=== PATIENT | male | born 1980 | race Caucasian/White ===

== ENCOUNTER 2021-01-12 16:00 | Emergency (ER) | payer OTHER, SELFPAY ==
--- NOTE | 2021-01-12 16:01 | ED.URI ---
HPI - URI/Sore Throat General Chief Complaint: Upper Respiratory Infection Stated Complaint: Sore Throat Time Seen by Provider: 01/12/21 16:01 Source: patient and RN notes reviewed History of Present Illness HPI Narrative: Patient is a 40-year-old male who presents the urgent care with complaints of a sore throat since last Monday. Patient states that on Monday he was tested negative for Covid. States that he was seen in another facility and they chalked it up to allergies but never tested him for strep . Patient denies of any other upper respiratory symptoms. Denies any fever, chills, nausea, vomiting. States that he is aching Mucinex and Pat-[place] for his symptoms. No other acute complaints. No acute distress noted. Patient aware of the plan of care. Some parts of this dictation were generated by voice recognition software and may contain typographical and/or grammatical inaccuracies. Related Data Allergies Allergy/AdvReac Type Severity Reaction Status Date / Time No Known Allergies Allergy Verified 01/12/21 16:14 Review of Systems Review of Systems: CONSTITUTIONAL: Denies fever, chills, or sweats. EYES: Denies visual changes, redness, or discharge. ENT: Denies rhinorrhea, congestion, otalgia. Reports of sore throat CARDIOVASCULAR: Denies chest pain, palpitations, or edema. RESPIRATORY: Denies cough or dyspnea. GASTROINTESTINAL: Denies abdominal pain, nausea, vomiting, or diarrhea. GENITOURINARY: Denies dysuria or hematuria. SKIN: Denies rash or itching. MUSCULOSKELETAL: Denies back pain, joint pain, or myalgia. NEUROLOGIC: Reports of intermittent headaches All other systems reviewed are negative, except as documented in HPI. PMFSH Comments At the time of my signature, I reviewed and agree with the nursing past medical, surgical, social, and family history. There is no relevant family history pertinent to the patient complaint. Exam Narrative: GENERAL: This is a well-nourished, well-developed patient, in no apparent distress. HEAD: normocephalic, atraumatic. EYES: PERRL. Sclera clear/white. Vision is grossly intact. EARS: External ears normal, auditory canals clear and without drainage, TMs normal without perforation. Hearing grossly intact. NOSE: External nose normal with no obvious nasal discharge, nares without redness, no rhinorrhea. THROAT: Mucous membranes moist, mild edema and erythema noted to the posterior oropharynx with moderate postnasal drainage. NECK: Neck supple CARDIOVASCULAR: Regular rate and rhythm without murmurs, gallops, or rubs. RESPIRATORY: Clear to auscultation. Breath sounds equal bilaterally. No wheezes, rales, or rhonchi. SKIN: warm, intact with no suspicious lesions or rash, good texture and turgor. NEURO: awake, alert, and oriented to person, place and time. There were no obvious focal neurologic abnormalities. EXTREMITIES: No clubbing, cyanosis, or edema. Course Vital Signs Vital signs: Vital Signs Temperature 98.4 F 01/12/21 16:08 Pulse Rate 71 01/12/21 16:08 Respiratory Rate 16 01/12/21 16:08 Blood Pressure 136/75 01/12/21 16:08 Pulse Oximetry 100 01/12/21 16:08 Temperature 98.4 F 01/12/21 16:08 Pulse Rate 71 01/12/21 16:08 Respiratory Rate 16 01/12/21 16:08 Blood Pressure 136/75 01/12/21 16:08 Pulse Oximetry 100 01/12/21 16:08 Reviewed MDM - URI/Sore Throat MDM Narrative Medical decision making narrative: Reviewed lab results with the patient. He is aware that strep swab was negative. Educated patient on culture and we will call within 72 hours if culture is positive and antibiotics are necessary. Advised the patient to continue using [id number] medication as needed for symptoms. Use Tylenol/ibuprofen as needed for pain and headache. Increase your fluid intake. Complete steroid regimen as prescribed. Be sure to eat and drink with medication. Follow-up with your PCP within 2 to 5 days or for worsening symptoms or failure to im
[2021-01-12 16:08] VITALS: BP 136/75; PULSE 71; RESP 16; TEMP 36.9; O2SAT 100
[2021-01-12 16:14] VITALS: BP 136/75; PULSE 71; RESP 16; TEMP 36.9; O2SAT 100
== END 2021-01-12 16:29 | disposition home or self-care (01) ==
PROVIDERS: Emergency Provider Nurse Practitioner Family
DX: J02.9 Acute pharyngitis, unspecified (principal)
CPT/HCPCS: 87081; 87880; 99213; G0463

== ENCOUNTER 2022-03-19 18:27 | Emergency (ER) | payer OTHER, SELFPAY ==
[2022-03-19 18:32] VITALS: BP 141/75; PULSE 65; RESP 16; TEMP 36.3; O2SAT 98
--- NOTE | 2022-03-19 19:24 | ED.GENADULT ---
HPI - General Adult General Chief complaint: Upper Respiratory Infection Stated complaint: ear / sinus Source: patient Mode of arrival: ambulatory Limitations: no limitations History of Present Illness HPI narrative: Patient presents for evaluation of right-sided ear pain and sinus symptoms. Symptom onset approximately 1 week ago. He reports the mucopurulent discharge from his nares or muffled hearing in both ears, right greater than left. Denies any fever, chills, nausea, vomiting, diarrhea and sore throat. He has an occasional cough but denies SOB. He is not a smoker. Several family members have sick symptoms but have not received a formal medical diagnosis by a healthcare professional. He is not taking any medications to assist with the symptoms. Related Data Allergies Allergy/AdvReac Type Severity Reaction Status Date / Time No Known Allergies Allergy Verified 01/12/21 16:14 Review of Systems Review of Systems: CONSTITUTIONAL: Denies fever, chills, or sweats. EYES: Denies visual changes, redness, or discharge. ENT: Reports sinus congestion mucopurulent discharge from the nares. Reports sore throat. Reports right-sided ear pain. Reports bilateral muffled hearing, right greater than left. CARDIOVASCULAR: Denies chest pain, palpitations, or edema. RESPIRATORY: Denies cough or dyspnea. GASTROINTESTINAL: Denies abdominal pain, nausea, vomiting, or diarrhea. GENITOURINARY: Denies dysuria or hematuria. SKIN: Denies rash or itching. MUSCULOSKELETAL: Denies back pain, joint pain, or myalgia. NEUROLOGIC: Denies headache, numbness, dizziness, or weakness. PSYCHIATRIC: Denies anxiety or depression. [facility] Past Medical History Medical History No pertinent past medical history Surgical History Surgical History No pertinent past surgical history Family History Family History Mother Family history non-contributory Social History Social History Smoking status: Never smoker Alcohol intake: never Substance use: never Gender identity (if verbalized by the patient): Male Sexual Orientation (if Verbalized by the Patient): Straight or Heterosexual Spiritual care concerns: No Exam Narrative: GENERAL: Appears acutely ill but nontoxic HEAD: Normocephalic, atraumatic. EYES: PERRLA and EOMI. ENT: Nares clear, no rhinorrhea or epistaxis. Mucous membranes moist. Oropharynx without tonsillar hypertrophy exudate or other lesions. Bilateral tympanic membrane erythema. There is white exudate present the right TM. There is bulging of the right TM. CHEST: Clear to auscultation. No respiratory distress. No wheezes rales or rhonchi HEART: Regular rate and rhythm. No murmur heard. Normal peripheral pulses. ABDOMEN: Soft, nontender, nondistended, normal active bowel sounds. EXTREMITIES: Normal range of motion. No edema. SKIN: Warm, dry, no rash. NEURO: No focal deficits. Alert and oriented x3. PSYCH: Normal mood and affect. Course Course Emergency Course: This is a 41-year-old male presenting for evaluation of sick symptoms. He has evidence of otitis media on exam. Will treat with Augmentin. Increase hydration. [id number] agents for symptom management. Follow up with primary provider. Go to the ER for worsening symptoms. Patient agreement care. Level of Care: Express Care Visit Vital Signs Vital signs: Vital Signs Temperature 36.3 C L 03/19/22 18:32 Pulse Rate 65 03/19/22 18:32 Respiratory Rate 16 03/19/22 18:32 Blood Pressure 141/75 H 03/19/22 18:32 Pulse Oximetry 98 03/19/22 18:32 Oxygen Delivery Room Air 03/19/22 18:32 Temperature 36.3 C L 03/19/22 18:32 Pulse Rate 65 03/19/22 18:32 Respiratory Rate 16 03/19/22 18:32 Blood Press
== END 2022-03-19 19:28 | disposition home or self-care (01) ==
PROVIDERS: Emergency Provider Nurse Practitioner
DX: H66.91 Otitis media, unspecified, right ear (principal)
CPT/HCPCS: 99213; G0463

== ENCOUNTER 2022-03-24 10:35 | Emergency (ER) | payer OTHER, SELFPAY ==
[2022-03-24 10:38] VITALS: BP 120/69; PULSE 67; RESP 20; TEMP 36.9; O2SAT 98
--- NOTE | 2022-03-24 10:46 | ED.URI ---
HPI - URI/Sore Throat General Chief Complaint: Ear Stated Complaint: Ear Pain Time Seen by Provider: 03/24/22 10:46 Source: patient and RN notes reviewed History of Present Illness HPI Narrative: patient is a 41-year-old male who presents to urgent care with complaints of continuing right ear pain after being seen on Monday. Patient was given Augmentin for an ear infection. States that he has been taking Sudafed, using Flonase and ibuprofen. No other acute complaints. No acute distress noted. Patient aware of the plan of care. Some parts of this dictation were generated by voice recognition software and may contain typographical and/or grammatical inaccuracies. Related Data Allergies Allergy/AdvReac Type Severity Reaction Status Date / Time No Known Allergies Allergy Verified 03/24/22 10:47 Review of Systems Review of Systems: CONSTITUTIONAL: Denies fever, chills, or sweats. EYES: Denies visual changes, redness, or discharge. ENT: Denies rhinorrhea, congestion, sore throat . Reports right ear pain CARDIOVASCULAR: Denies chest pain, palpitations, or edema. RESPIRATORY: Denies cough or dyspnea. GASTROINTESTINAL: Denies abdominal pain, nausea, vomiting, or diarrhea. GENITOURINARY: Denies dysuria or hematuria. SKIN: Denies rash or itching. MUSCULOSKELETAL: Denies back pain, joint pain, or myalgia. NEUROLOGIC: Denies headache, numbness, or weakness. All other systems reviewed are negative, except as documented in HPI. [facility] Past Medical History Medical History (Updated 03/24/22 @ 10:52 by PARAM Brady) No pertinent past medical history Surgical History Surgical History No pertinent past surgical history Family History Family History Mother Family history non-contributory Social History Social History Smoking status: Never smoker Alcohol intake: never Substance use: never Gender identity (if verbalized by the patient): Male Sexual Orientation (if Verbalized by the Patient): Straight or Heterosexual Spiritual care concerns: No Comments At the time of my signature, I reviewed and agree with the nursing past medical, surgical, social, and family history. There is no relevant family history pertinent to the patient complaint. Exam Narrative: GENERAL: This is a well-nourished, well-developed patient, in no apparent distress. HEAD: normocephalic, atraumatic. EYES: PERRL. Sclera clear/white. Vision is grossly intact. EARS: External ears normal, auditory canals clear and without drainage. very mild erythema noted surrounding the right TM with slight effusion, improved from last assessment. LeftTMs normal without perforation. Hearing grossly intact. NOSE: External nose normal with no obvious nasal discharge, nares without redness, no rhinorrhea. THROAT: Mucous membranes moist, posterior pharynx clear. moderate postnasal drainage NECK: Neck supple, non-tender without lymphadenopathy, masses or thyromegaly. CARDIOVASCULAR: Regular rate and rhythm without murmurs, gallops, or rubs. RESPIRATORY: Clear to auscultation. Breath sounds equal bilaterally. No wheezes, rales, or rhonchi. SKIN: warm, intact with no suspicious lesions or rash, good texture and turgor. NEURO: awake, alert, and oriented to person, place and time. There were no obvious focal neurologic abnormalities. EXTREMITIES: No clubbing, cyanosis, or edema. Course Course Level of Care: Express Care Visit Vital Signs Vital signs: Vital Signs Temperature 98.5 F 03/24/22 10:38 Pulse Rate 67 03/24/22 10:38 Respiratory Rate 20 03/24/22 10:38 Blood Pressure 120/69 03/24/22 10:38 Pulse Oximetry 98 03/24/22 10:38 Oxygen Delivery Room Air 03/24/22 10:38 Temperature 98.5 F 03/24/22 10:38 Pulse Rate 67 03/24/22 10:38 Respir
== END 2022-03-24 11:12 | disposition home or self-care (01) ==
PROVIDERS: Emergency Provider Nurse Practitioner Family
DX: H66.91 Otitis media, unspecified, right ear (principal)
CPT/HCPCS: 99211; G0463